=== PATIENT | female | born 1980 | race Asian ===

== ENCOUNTER → 2017-02-13 | Outpatient (CLI) | payer BC | LOC: COL.RAD 08:12 | DX: B18.1 Chronic viral hepatitis B without delta-agent (principal); R74.8 Abnormal levels of other serum enzymes ==

== ENCOUNTER 2017-09-15 00:50 | Emergency (ER) | payer BC ==
[~2017-09-15] VITALS: Ht 157.5 cm; Wt 49.1 kg
[2017-09-15 00:54] VITALS: BP 107/68; PULSE 61; TEMP 98.2
[2017-09-15] MEDS ORDERED: VIREAD150 MG PO (00:56)
== END 2017-09-15 01:30 | disposition home or self-care (01) ==
LOC: COL.ER 00:50
DX: H11.31 Conjunctival hemorrhage, right eye (principal); W45.0XXA Nail entering through skin, initial encounter

== ENCOUNTER → 2017-10-04 | Outpatient (CLI) | payer BC ==
[~2017-10-04] MED LIST: VIREAD150 MG PO
== END ==
LOC: COL.RAD 09:19
DX: R93.2 Abnormal findings on diagnostic imaging of liver and biliary tract (principal); B18.1 Chronic viral hepatitis B without delta-agent

== ENCOUNTER 2018-05-17 08:11 | Day surgery (SDC) | payer BC ==
[~2018-05-17] VITALS: Ht 157.5 cm; Wt 51.5 kg
[2018-05-17 08:42] VITALS: BP 97/60; PULSE 62; TEMP 97.5
[2018-05-17] MEDS ORDERED: PRILOSEC 20MG20 MG PO (08:42)
[2018-05-17 09:40] VITALS: BP 111/78; PULSE 87; TEMP 97.8
[2018-05-17 09:55] VITALS: BP 101/69; PULSE 75
[2018-05-17 10:10] VITALS: BP 102/69; PULSE 66
[2018-05-17 10:25] VITALS: BP 101/71; PULSE 71
== END 2018-05-17 10:40 | disposition home or self-care (01) ==
LOC: SDCO 08:11
DX: K29.30 Chronic superficial gastritis without bleeding (principal)
CPT/HCPCS: J2250; J3010; J7030

== ENCOUNTER → 2018-10-02 | Outpatient (CLI) | payer BC ==
[~2018-10-02] MED LIST changes: +PRILOSEC 20MG20 MG PO
[2018-10-02 10:54] LABS: BASO % 0.2 % (0.0-2.0); EOS # 0.1 (0.0-0.7); EOS % 1.5 % (0-4.0); GRAN # 2.8 (1.4-6.5); GRAN % 53.9 % (42.2-75.2); HEMATOCRIT 38.8 % (37.0-47.0); HEMOGLOBIN 12.8 g/dl (12.5-16.0); MEAN CELL VOLUME 89 fl (80.0-100.0); MEAN CORPUSCULAR HEMOGLOBIN 30 pg (27.0-31.0); MEAN CORPUSCULAR HGB CONC 33 g/dl (33.0-37.0); MEAN PLATELET VOLUME 9.5 fl (7.4-10.4); MONO # 0.4 (0.1-0.6); MONO % 7.2 % (1.7-9.3); PLATELET COUNT 245 K/mm3 (130-400); RED BLOOD COUNT 4.34 M/mm3 (4.10-5.30); REDCELL DISTRIBUTION WIDTH-CV 12.9 % (11.5-14.5)
[2018-10-02 11:07] LABS: ALBUMIN 4.3 gm/dL (3.5-5.0); BILIRUBIN,TOTAL 0.3 mg/dL (0.0-1.0); CALCIUM 8.9 mg/dL (8.4-10.2); CREATININE, serum 0.42 mg/dL (0.52-1.25); POTASSIUM 4.2 mmol/L (3.4-5.0); TOTAL PROTEIN 7.3 gm/dL (6.4-8.2)
[2018-10-02 11:11] LABS: INR 1.1 (0.8-3.0); PROTHROMBIN TIME 12.7 SECONDS (9.7-12.8)
[2018-10-04 09:25] LABS: HEPATITIS B SURFACE ANTIBODY <2.0 (())
[2018-10-04 12:29] LABS: HEPATITIS B SURFACE ANTIGEN Positive (Negative)
[2018-10-04 12:29] LABS: HEPATITIS Be ANTIGEN Negative (Negative)
== END ==
LOC: COL.RAD 09:44
PROVIDERS: Physician Assistant
DX: B18.1 Chronic viral hepatitis B without delta-agent (principal)

== ENCOUNTER → 2020-04-28 | Outpatient (CLI) | payer BC ==
[2020-04-28 11:12] LABS: BASO % 0.5 % (0.0-2.0); EOS % 0.7 % (0-4.0); GRAN # 1.9 (1.4-6.5); GRAN % 43.6 % (42.2-75.2); HEMATOCRIT 38.9 % (37.0-47.0); HEMOGLOBIN 13.4 g/dl (12.5-16.0); LYMPH # 2.1 (1.2-3.4); MEAN CELL VOLUME 89 fl (80.0-100.0); MEAN CORPUSCULAR HEMOGLOBIN 31 pg (27.0-31.0); MEAN CORPUSCULAR HGB CONC 34 g/dl (33.0-37.0); MEAN PLATELET VOLUME 9.3 fl (7.4-10.4); MONO # 0.3 (0.1-0.6); MONO % 7.2 % (1.7-9.3); PLATELET COUNT 272 K/mm3 (130-400); RED BLOOD COUNT 4.35 M/mm3 (4.10-5.30); REDCELL DISTRIBUTION WIDTH-CV 11.9 % (11.5-14.5)
[2020-04-28 11:15] LABS: INR 1.1 (0.8-3.0); PROTHROMBIN TIME 11.9 SECONDS (9.7-12.8)
[2020-04-28 12:07] LABS: CREATININE, serum 0.43 (0.52-1.25)
[2020-04-28 12:08] LABS: ALBUMIN 4.9 gm/dL (3.5-5.0); BILIRUBIN,TOTAL 0.5 mg/dL (0.0-1.0); POTASSIUM 4.2 mmol/L (3.4-5.0); TOTAL PROTEIN 8.2 gm/dL (6.4-8.2)
[2020-04-28 12:11] LABS: CALCIUM 9.3 mg/dL (8.4-10.2)
[2020-04-28 22:34] LABS: HEPATITIS B SURFACE ANTIBODY <2.0 (())
[2020-04-30 08:15] LABS: HEPATITIS B SURFACE ANTIGEN Positive (Negative)
[2020-05-01 11:44] LABS: HEPATITIS Be ANTIGEN Negative (Negative)
== END ==
LOC: COL.RAD 08:38 → COL.LAB 08:38 → COL.RAD 09:00
PROVIDERS: Physician Assistant
DX: B18.1 Chronic viral hepatitis B without delta-agent (principal)